=== PATIENT | male | born 1985 | race Caucasian/White ===

== ENCOUNTER 2017-10-26 16:00 | Inpatient (IN) | payer BC, OTHER ==
[~2017-10-26] VITALS: Ht 172.7 cm; Wt 80.7 kg
[2017-10-26] MEDS ORDERED: ONDANSETRON ODT 4 MG TAB.RAPDIS SL PRN (22:45)
[2017-10-26] MEDS ORDERED: CLONIDINE HCL 0.1 MG TABLET PO PRN (22:45)
[2017-10-26] MEDS ORDERED: MIRALAX 17 GM POWD.PACK PO PRN (22:45)
[2017-10-26] MEDS ORDERED: LOPERAMIDE HCL 2 MG CAPSULE PO PRN ×2 (22:45)
[2017-10-26] MEDS ORDERED: LORAZEPAM 1 MG TABLET PO PRN ×2 (22:45)
[2017-10-26] MEDS ORDERED: diphenhydrAMINE 50 MG CAPSULE PO PRN (22:45)
[2017-10-26] MEDS ORDERED: ONDANSETRON 4 MG/2 ML VIAL IM PRN (22:45)
[2017-10-26] MEDS ORDERED: ACETAMINOPHEN 325 MG TABLET PO PRN (22:45)
[2017-10-26] MEDS ORDERED: LORAZEPAM 2 MG/1 ML VIAL IM PRN (22:45)
[2017-10-26] MEDS ORDERED: MAG HYDROX/AL HYDROX/SIMETH 30 ML LIQUID UDC PO PRN (22:45)
--- NOTE | 2017-10-26 23:00 | NUR ---
Intake Assessment Pt met in intake office at 2215 for admission into [facility] for medically managed withdrawal/detox from ETOH and cocaine. VSS with BP 137/76, HR 93, T 98.4, RR 16 and SaO2 99% on RA. Pt is ambulatory, A&O x 4 with normal/soft speech and avoidant eye contact and slumped posture. Pt has a flat affect, facial expression sad, worried, fearful with c/o being tired (Pt states he shouldn't have just taken that 100mg of Seroquel (home med)). Pt appears to be somewhat intoxicated, sweaty, hypoactive and a poor historian but claims he hasn't had anything to drink in 2 days. Clothing and hair is disheveled and odorous, pt is unshaven, fingernails dirty. Pt reports binge drinking for past 3 months, and for last week drinking 12 beers, 1 pint/day, and doing 2 grams of cocaine via insuflation. No hx of OD, hx of "blackouts". Pt states he has been to 1 prior detox in 2017, accruing 14 months of sobriety after, and reports his longest period of sobriety as 24 months. Pt presents with PPH of Bipolar d/o, Schizo-Affective DO, and anxiety, all diagnosed pt believes in his early 20's. Pt is uncertain of time of diagnosis but believes it to have been in his early 20's, last seen for treatment 08/2017 for evaluation of all 3. PCP's name and/number unknown, but pt states it was in [place], [place]. When asked why he is coming to [facility], pt states "To try to stay of of it". Pt denies any allergiy, fall or seizure history, no SI/HI, no hx of abuse.
[2017-10-26 23:01] LABS: *AMPHETAMINE, URINE NEGATIVE (NEGATIVE); *BARBITURATE, URINE NEGATIVE (NEGATIVE); *CANNABINOID, URINE NEGATIVE (NEGATIVE); *COCCAINE, URINE POSITIVE (NEGATIVE); *OPIATE, URINE NEGATIVE (NEGATIVE); *PHENCYCLIDINE SCREEN,URINE NEGATIVE (NEGATIVE)
[2017-10-26 23:33] LABS: BASOPHILS # (AUTO) 0.1 K/uL (0.0-8.0); BASOPHILS % (AUTO) 0.4 % (0.0-2.0); EOSINOPHILS # (AUTO) 0.1 K/uL (0.0-0.7); EOSINOPHILS % (AUTO) 0.6 % (0.0-7.0); HEMATOCRIT 48.1 % (36.7-47.1); HEMOGLOBIN 16.1 g/dL (12.5-16.3); LYMPHOCYTES # (AUTO) 2.1 K/uL (20.0-40.0); LYMPHOCYTES % (AUTO) 16.1 % (20.5-51.5); MEAN CORPUSCULAR HEMOGLOBIN 28.9 uug (23.8-33.4); MEAN CORPUSCULAR HGB CONC 33 g/dL (32.5-36.3); MEAN CORPUSCULAR VOLUME 86.4 fL (73.0-96.2); MONOCYTES % (AUTO) 7.9 % (0.0-11.0); NEUTROPHILS # (AUTO) 9.9 K/uL (1.8-8.9); PLATELET COUNT (AUTO) 330 K/uL (152-348); RED BLOOD CELL COUNT(AUTO) 5.57 MIL/uL (4.06-5.63); WHITE BLOOD COUNT (AUTO) 13.2 K/uL (3.6-10.2)
[2017-10-26 23:39] LABS: ETHANOL < 3 MG/DL (0-0)
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
[2017-10-26 23:50] LABS: CARBON DIOXIDE 28 mmol/L (21-32); CHLORIDE 102 mmol/L (98-107); CREATININE 1.1 mg/dL (0.6-1.3); GLUCOSE 105 mg/dL (74-106); POTASSIUM 3.8 mmol/L (3.5-5.1); UREA NITROGEN, BLOOD 15 mg/dL (7-18)
[2017-10-26 23:51] LABS: ALANINE AMINOTRANSFERASE 51 U/L (16-63); ALKALINE PHOSPHATASE 66 U/L (50-136); AMYLASE 83 U/L (25-115); ASPARTATE AMINOTRANSFERASE 39 U/L (15-37); BILIRUBIN,TOTAL 0.3 mg/dL (0.2-1.0); TOTAL PROTEIN, SERUM 7.2 g/dL (6.4-8.2)
[2017-10-27] VITALS: BP 140/79
[2017-10-27 04:00] VITALS: BP 116/70
--- NOTE | 2017-10-27 07:27 | NUR ---
End of Shift Endorsement reported to day nurse. [facility] 10[facility]26/17 at 2300 hours for medically managed withdrawal/detox from ETOH and Cocaine Salts. Pt oriented to unit and able to cooperate with admission process with encouragement. Pt appeared sweaty/diaphoretic, mildly confused (poor historian), tremors, and anxious, with flat affect, sad, worried expression (initial CIWA 14). Pt unable to express himself or emotions adequately. Pt slept for 5 hours, with 355 mls intake, 1 void and 1 BM immediately prior to unit entry.
--- NOTE | 2017-10-27 07:45 | NUR ---
START OF SHIFT PT IS A 32 Y/O M ADMITTED YESTERDAY 10/26/17 FOR MEDICALLY SUPERVISED ETOH AND COCAINE WITHDRAWAL. PT HAS PRN MEDS FOR MANAGEMENT OF S/S. LAST CIWA 14, NO PRNS GIVEN LAST NIGHT. PT SLEPT 6 HRS. RECEIVED PT A/OX4, RESPIRATIONS EVEN AND UNLABORED. PT HAS A FLAT AFFECT WITH A STOIC EXPRESSION AND HAS A POOR EYE CONTACT WHEN ASKING QUESTIONS. PT APPEARS WITHDRAWN. PT PRESENTS FACIAL FLUSHING, ANXIETY, AGITATION, RESTLESSNESS, DYSPHORIA, ANHEDONIA AND TREMORS ARE NOTED. EDUCATED PT WITH TODAY'S PLAN OF CARE AND MED REGIMEN. SIDE RAILS UPX2, BED IN LOW POSITION. CALL LIGHT WITHIN REACH. SAFETY MEASURES IN PLACE. WILL CONTINUE TO MONITOR.
[2017-10-27 08:00] VITALS: BP 119/68
[2017-10-27] MEDS: FOLIC ACID 1 MG TABLET PO SCH (08:38)
[2017-10-27] MEDS: MULTIVITAMINS,THERAPEUTIC TABLET PO SCH (08:39)
[2017-10-27] MEDS: THIAMINE HCL 100 MG TABLET PO SCH (08:39)
[2017-10-27] MEDS ORDERED: TUBERCULIN,PURIF.PROT.DERIV. 5 TU/0.1 ML TEST ID ONE (09:00)
[2017-10-27] MEDS ORDERED: QUET100T PO (09:49)
[2017-10-27 12:00] VITALS: BP 112/60
[2017-10-27 16:00] VITALS: BP 138/80
--- NOTE | 2017-10-27 19:28 | NUR ---
END OF SHIFT PT LAST CIWA 10. PT APPEARS FLUSHED, SKIN IS CLAMMY. NO PRNS GIVEN DURING SHIFT. PT HAS BEEN COMPLIANT WITH PLAN OF CARE. FLUID INTAKE 1900ML, VOIDED X3, BM 0. PT ATE 75% OF MEALS. ENCOURAGED PT TO VERBALIZE FEELINGS ON SITUATION. SAFETY MEASURES IN PLACE. ENDORSEMENT GIVEN TO FLEXIBLE SHAFT WINDER NURSE.
--- NOTE | 2017-10-27 19:45 | NUR ---
Start of Shift Note Received 32 y/o male px, admitted for medically supervised withdrawal from ETOH, Xanax and Cocaine. Px was placed on PRN medications. Last reported CIWA 10 by AM shift nurse. During the rounds at 1945, px is awake on bed in fowlers position watching TV. Px appears, anxious, depressed and unshaven. Px has poor eye contact. Few unfinished drinks noted on top of bed side table. Px stated my anxiety is 5/10. No more complaints made. Bed on lowest position, side rails up and call light within reach. Well continue to monitor.
[2017-10-27 20:00] VITALS: BP 143/86
[2017-10-27] MEDS ORDERED: QUETIAPINE FUMARATE 100 MG TABLET PO SCH (21:00)
[2017-10-27] MEDS: HYDROXYZINE PAMOATE 25 MG CAPSULE PO PRN (21:27)
--- NOTE | 2017-10-27 21:27 | NUR ---
PRN Vistaril Px received Vistaril 25 mg/cap, 1 cap PO as PRN med for anxiety.
--- NOTE | 2017-10-27 22:30 | NUR ---
Reassessment of anxiety Px stated "I feel better now but I still feel the anxiety." We'll continue to monitor.
[2017-10-28] VITALS: BP 132/80
[2017-10-28 04:00] VITALS: BP 124/77
--- NOTE | 2017-10-28 04:00 | NUR ---
CIWA deferred CIWA deferred at 0000 and 0400 due to the px is asleep, to assess if the px is awake per doctor's order. We'll continue to monitor.
--- NOTE | 2017-10-28 07:09 | NUR ---
End of Shift Note During the shift at 2126, px received Vistaril 25 mg PO as PRN med for anxiety. It was effective. Pxs oral intake is 800 ml, voided 1x, without BM. Px slept for 8 hours. At 0630, px is asleep on bed in right side lying position. Last CIWA 9. Bed on lowest position, side rails up and call light within reach. Well continue to monitor. Px endorsed to AM shift nurse.
[2017-10-28 08:00] VITALS: BP 139/87
--- NOTE | 2017-10-28 08:01 | NUR ---
START OF SHIFT PT IS A 32 Y/O M ADMITTED ON 10/26/17 FOR MEDICALLY SUPERVISED ETOH, XANAX AND COCAINE WITHDRAWAL. PT HAS PRN MEDS FOR MANAGEMENT OF S/S. LAST CIWA 9, VISTARIL 25 MG PRN GIVEN LAST NIGHT FOR INCREASED ANXIETY. PT SLEPT 8 HRS. RECEIVED PT A/OX4, RESPIRATIONS EVEN AND UNLABORED. PT HAS A FLAT AFFECT WITH A STOIC EXPRESSION, HAS A POOR EYE CONTACT AND IS WITHDRAWN. PT PRESENTS FACIAL FLUSHING, ANXIETY, AGITATION, RESTLESSNESS, DYSPHORIA, ANHEDONIA AND MILD TREMORS ARE NOTED. SIDE RAILS UPX2, BED IN LOW POSITION. CALL LIGHT WITHIN REACH. SAFETY MEASURES IN PLACE. WILL CONTINUE TO MONITOR.
[2017-10-28 08:06] LABS: HEPATITIS B SURFACE AG Negative (Negative)
[2017-10-28] MEDS: FOLIC ACID 1 MG TABLET PO SCH (09:43)
[2017-10-28] MEDS: THIAMINE HCL 100 MG TABLET PO SCH (09:43)
[2017-10-28] MEDS: MULTIVITAMINS,THERAPEUTIC TABLET PO SCH (09:43)
[2017-10-28 12:00] VITALS: BP 149/89
--- NOTE | 2017-10-28 12:40 | NUR ---
BP:149/89 HR: 89. PT STATED HE HAS INCREASED ANXIETY 11/17 BUT REFUSED CLONIDINE AND VISTARIL PO PRN. NOTIFIED. ENCOURAGED PT TO VERBALIZE FEELINGS BUT PT DOES NOT RESPOND. WILL MONITOR CLOSELY. Addendum: 10/28/17 at 1622 by DINA BARON RN PT APPEARED TO BE ANGRY BUT REFUSED TO VERBALIZE HIS FEELINGS.
[2017-10-28] MEDS: ESCITALOPRAM OXALATE 10 MG TABLET PO SCH (14:15)
[2017-10-28 16:00] VITALS: BP 143/86
[2017-10-28] MEDS: QUETIAPINE FUMARATE 100 MG TABLET PO SCH (16:38)
--- NOTE | 2017-10-28 19:30 | NUR ---
Start of Shift Note Received 32 y/o male px, admitted for medically supervised withdrawal from ETOH, Xanax and Cocaine. Px was placed on PRN medications. Last reported CIWA 11 by AM shift nurse. During the rounds at 1930, px is awake on bed in fowlers position watching TV. Px appears, anxious, depressed and unshaven. Px has poor eye contact. Few unfinished drinks noted on top of bed side table. Px complained about a pustule like lesion on the middle part of the upper lip. Swelling noted around the pustule. Px stated My anxiety is 7/10. Can I take my Seroquel later? Bed on lowest position, side rails up and call light within reach. Well continue to monitor.
--- NOTE | 2017-10-28 19:40 | NUR ---
END OF SHIFT PT HAS BEEN WITHDRAWN AND ISOLATIVE IN ROOM THROUGHOUT SHIFT; PT HAS NOT ATTENDED GROUPS. PT C/O INCREASED ANXIETY; REFUSED TO HAVE VISTARIL. PT SEEMED TO BE UPSET, ENCOURAGED PT TO VERBALIZE FEELINGS BUT PT SHOOK HIS HEAD AND WOULD NOT REPLY. ASK THERAPIST TO SPEAK TO PT. ENCOURAGED PT TO ATTEND GROUPS AND ACTIVITIES. FLUID INTAKE 1250 ML, VOIDED X4, BM 0. LAST CIWA 11. SAFETY MEASURES IN PLACE. ENDORSEMENT GIVEN TO GYNAECOLOGICAL ONCOLOGIST NURSE.
[2017-10-28 20:00] VITALS: BP 163/90
--- NOTE | 2017-10-28 20:00 | NUR ---
PRN medications Clonidine 0.1 mg/tab, 1 tab given PO for BP= 163/90. Motrin 400 mg/tab, 1 tab PO and Tylenol 325 mg/tab, 2 tabs given for pain and swelling secondary to a pustule.
[2017-10-28] MEDS: IBUPROFEN 400 MG TABLET PO PRN (20:01)
--- NOTE | 2017-10-28 21:00 | NUR ---
Reassessment of BP Px's BP= 149/82 after an hour of clonidine administration. We'll continue to monitor.
[2017-10-28] MEDS ORDERED: QUETIAPINE FUMARATE 100 MG TABLET PO ONE (22:00)
--- NOTE | 2017-10-28 22:01 | NUR ---
1x dose of Seroquel Px requested for Seroquel 100 mg. Px was given Seroquel 100 mg/tab, 1 tab PO as 1x dose medication. We'll continue to monitor.
[2017-10-29] VITALS: BP 122/61
[2017-10-29 04:00] VITALS: BP 116/63
--- NOTE | 2017-10-29 07:00 | NUR ---
End of Shift Note During the shift at 1999, px received Clonidine 0.1 mg PO, Motrin 400 mg PO and Tylenol 650 mg PO as PRN medications for high BP and pain. They were effective. At 2200, px received Seroquel 100 mg PO as 1x dose medicine as requested by the px. It was effective. Px slept for 8 hours. Pxs oral intake is 1000 ml, voided 2x, without BM. At 0630, px is asleep on bed in right side lying position. Last CIWA 11. Bed on lowest position, side rails up and call light within reach. Well continue to monitor. Px endorsed to AM shift nurse.
--- NOTE | 2017-10-29 07:10 | NUR ---
Start of Shift Notes: Received patient in his room. He is seen laying in bed eyes closed. Breathing even and unlabored. Arousable when his name is called. He appears disheveled and he is odorous. Room is messy with clothes, linen, and empty water bottles on the floor. Encouraged maintenance of personal hygiene and space. Patient is a 32 year old male admitted for ETOH and BZO withdrawal who was placed on a PRNs at this time. Educated patient on his current plan of care for the day and his medication regimen. Encouraged oral fluid intake and encouraged group participation to learn new skills to prevent relapse. Will continue to monitor closely.
[2017-10-29 08:00] VITALS: BP 129/69
[2017-10-29] MEDS: IBUPROFEN 400 MG TABLET PO PRN ×2 (08:36→21:02)
[2017-10-29] MEDS: MULTIVITAMINS,THERAPEUTIC TABLET PO SCH (08:36)
--- NOTE | 2017-10-29 08:36 | NUR ---
Motrin 400 mg PO given: Patient complained of 5/10 pain to his philtrum area (between nose and upper lip) due to a sore from an ingrown hair. Area appears red and tender. Medicated patient with Motrin 400 mg PO as ordered. Will monitor for effectiveness. Notified MD Pratt.
[2017-10-29] MEDS: THIAMINE HCL 100 MG TABLET PO SCH (08:37)
[2017-10-29] MEDS: ESCITALOPRAM OXALATE 10 MG TABLET PO SCH (08:37)
[2017-10-29] MEDS: FOLIC ACID 1 MG TABLET PO SCH (08:37)
[2017-10-29] MEDS: QUETIAPINE FUMARATE 100 MG TABLET PO SCH (08:41)
--- NOTE | 2017-10-29 08:41 | NUR ---
Seroquel 100 mg PO not administered: Seroquel 100 mg PO was refused by the patient. He states "I don't want to take it in the daytime. It knocks me out." Educated patient on the risk and benefits but patient still refused. Offered 3x. made aware.
--- NOTE | 2017-10-29 09:36 | NUR ---
Re-assessment: Motrin Patient verbalizes relief from pain. He states his PL is now 1/10. PRN Motrin was effective.
[2017-10-29] MEDS ORDERED: MUPIROCIN 2% OINT 22 GM TUBE TP ONE (11:15)
[2017-10-29] MEDS: MUPIROCIN 2% OINT 22 GM TUBE TP SCH ×2 (11:55→20:55)
[2017-10-29] MEDS: HYDROXYZINE PAMOATE 25 MG CAPSULE PO PRN (11:57)
--- NOTE | 2017-10-29 11:57 | NUR ---
Vistaril 25 mg PO given: Patient complained of anxiety. Encouraged patient to verbalize his feelings and concerns. PRN Vistaril 25 mg PO was given as ordered. Will monitor for effectiveness.
[2017-10-29 12:00] VITALS: BP 135/82
--- NOTE | 2017-10-29 12:57 | NUR ---
Re-assessment: Vistaril Patient verbalizes that he feels more at ease. He states "I feel better." PRN Vistaril was effective.
[2017-10-29] MEDS ORDERED: HYDR-3895 PO (14:33)
[2017-10-29] MEDS ORDERED: MUPI22OI2 TP (14:33)
[2017-10-29] MEDS ORDERED: ESCI10TA PO (14:33)
[2017-10-29] MEDS ORDERED: IBUP-1953 PO (14:33)
[2017-10-29 16:00] VITALS: BP 139/89
--- NOTE | 2017-10-29 19:00 | NUR ---
End of Shift Notes: Patient continues to be on close monitoring regarding ETOH withdrawal symptoms. VS monitored closely. No significant abnormalities noted. Withdrawal symptoms were closely monitored. Initial CIWA 11, patient presented with anxiety, agitation, tremors and sweats. No S/I or H/I noted. No AV hallucinations noted. Started on Bactroban ointment to philtrum folliculitis. No adverse reactions noted. Requires encouragement to participate in group and activities due to episodes of self isolation. PRN Motrin given at 0836 and Vistasril 25 mg PO at 1157 with help. Showered in AM. Patient will be discharging tomorrow. Compliant with care and treatment. Seen by Dr. Fernando and orders for Seroquel was changed. All needs met and attended. Will continue to monitor closely.
--- NOTE | 2017-10-29 19:43 | NUR ---
START OF SHIFT NOTE Rcvd report from outgoing nurse, pt. is in his room. Pt. is a 32 y/o male A/O to person, place, time, and purpose. Pt. was admitted for medically supervised withdrawal from ETOH and Benzodiazepines. Pt. has been presenting w/ depressed and withdrawn mood, anxiety, and blunt affect. Pt. has not attended group therapy and has chosen to remain in his room. Pt. denies S/I and H/I. PRN Vistaril and Motrin were given for headache and increased anxiety, noted effective. Last CIWA 7 @ 1600. Call light is within reach. Pt. will continue to be monitored and needs met.
[2017-10-29 20:00] VITALS: BP 143/91
[2017-10-29] MEDS ORDERED: QUETIAPINE FUMARATE 100 MG TABLET PO SCH (21:00)
[2017-10-29] MEDS ORDERED: QUETIAPINE FUMARATE 200 MG TABLET PO SCH (21:00)
--- NOTE | 2017-10-29 21:02 | NUR ---
PRN ADMINISTRATION PRN Motrin 400mg given for pain due to ingrown hair. Will reassess pt. in 1 hr.
--- NOTE | 2017-10-29 22:02 | NUR ---
PRN REASSESSMENT Pt. states relief of pain. Pt.'s breathing is unlabored and pulse is strong and regular.
--- NOTE | 2017-10-30 | NUR ---
CIWA DEFERRED AND V/S REFUSED Pt. is in bed w/ his eyes closed. Pt.'s breathing is unlabored and even.
--- NOTE | 2017-10-30 04:00 | NUR ---
CIWA DEFERRED AND V/S REFUSED Pt. is in bed w/ his eyes closed. pt.'s breathing is unlabored and even.
--- NOTE | 2017-10-30 07:12 | NUR ---
END OF SHIFT NOTE Endorsed pt. to oncoming nurse, pt. is in his room. Pt. is a 32 y/o male A/O to person, place, time, and purpose. Pt. was admitted for medically supervised withdrawal from ETOH and Benzodiazepines. Pt. continues to present w/ depressed and withdrawn mood, anxiety, and blunt affect. Pt. has chosen to remain isolated in his room during most of his stay. Pt. denies S/I and H/I. PRN Motrin 400mg @ 2102 for pain from ingrown hair, noted effective. Pt.s fluid intake was 591ml and he voided 1 time. Pt. slept for 8 hrs. Last CIWA 8 @ 1999. Call light is within reach.
[2017-10-30 08:00] VITALS: BP 126/80
--- NOTE | 2017-10-30 08:05 | NUR ---
START OF SHIFT: RECEIVED PT A/O X4. POOR EYE CONTACT NOTED. DETOX TAPER IS COMPLETED. CIWA 5. HE PRESENTS WITH GUARDED AFFECT AND ANXIOUS MOOD. HE REPORTS PAIN TO INGROWN HAIR BELOW NOSTRILS 5/10 ON PAIN SCALE. MOTRIN GIVEN FOR PAIN. HE STATES HE FEELS MILDLY ANXIOUS ABOUT DISCHARGING THIS AM BUT STATES HE IS MOTIVATED TO STAY SOBER. WILL CONTINUE WITH DISCHARGE PLANNING. Addendum: 10/30/17 at 1029 by AUDREY MOJICA RN CORRECTION. PT WAS NOT ON A DETOX TAPER.
[2017-10-30] MEDS: MUPIROCIN 2% OINT 22 GM TUBE TP SCH (08:33)
[2017-10-30] MEDS: FOLIC ACID 1 MG TABLET PO SCH (08:33)
[2017-10-30] MEDS: MULTIVITAMINS,THERAPEUTIC TABLET PO SCH (08:33)
[2017-10-30] MEDS: ESCITALOPRAM OXALATE 10 MG TABLET PO SCH (08:33)
[2017-10-30] MEDS: THIAMINE HCL 100 MG TABLET PO SCH (08:33)
[2017-10-30] MEDS: IBUPROFEN 400 MG TABLET PO PRN (08:42)
--- NOTE | 2017-10-30 10:43 | NUR ---
DISCHARGE: PT IS A/O X 4. HE DENIES S/I AND H/I. HE STATES HE FEELS ENTHUSIASTIC TOWARD RECOVERY. BELONGINGS RETURNED. EDUCATED PT ON DISCHARGE MEDS AND INSTRUCTIONS. PT EXPRESSED VERBAL UNDERSTANDING OF EDUCATION . [employer] MANAGER ESCORTED PT TO [facility] WHERE HE WAS TRANSPORTED BY [facility] TO [facility] AT 1020.
== END 2017-10-30 10:28 | disposition other institution (70) | DRG 897 ==
LOC: SRC 21:51
PROVIDERS: ADMIT Internal Medicine; ATTEND Internal Medicine
PROC: HZ2ZZZZ Detoxification Services for Substance Abuse Treatment (ICD-10-PCS; principal; 2017-10-26)
DX: F10.230 Alcohol dependence with withdrawal, uncomplicated (principal); F14.20 Cocaine dependence, uncomplicated; Y90.9 Presence of alcohol in blood, level not specified; F17.220 Nicotine dependence, chewing tobacco, uncomplicated; F13.90 Sedative, hypnotic, or anxiolytic use, unspecified, uncomplicated; Z91.5 Personal history of self-harm; F25.0 Schizoaffective disorder, bipolar type; Z81.1 Family history of alcohol abuse and dependence; L73.9 Follicular disorder, unspecified
CPT/HCPCS: 36415; 80307; 80346; 80353; 83735; 85025; 86580; 86592; 86705; 86803; 87340; 87806; 93005; A4663; G0480